=== PATIENT | female | born 1975 | race Caucasian/White ===

== ENCOUNTER 2019-06-01 16:45 | Emergency (ER) | payer BC ==
[2019-06-01 16:52] VITALS: BP 118/76; PULSE 85; RESP 18; TEMP 98
[2019-06-01] MEDS ORDERED: ONDANSETRON ODT 4 MG TAB PO STA (17:14)
[2019-06-01] MEDS ORDERED: traMADol 50 MG STARTER PACK 3 TAB BTL PO STA (17:14)
--- NOTE | 2019-06-01 17:45 | XR ---
EXAMINATION TYPE: XR elbow complete LT DATE OF EXAM: 06/01/2019 COMPARISON: NONE HISTORY: Pain TECHNIQUE: 3 views FINDINGS: Elbow joint spaces are normal. I see no fracture nor dislocation. There is no sign of elbow joint effusion. IMPRESSION: Negative left elbow exam.
--- NOTE | 2019-06-01 17:45 | XR ---
EXAMINATION TYPE: XR lumbar spine 2 or 3V DATE OF EXAM: 06/01/2019 COMPARISON: NONE HISTORY: Pain TECHNIQUE: 3 views FINDINGS: Lumbar vertebra have normal spacing and alignment. Posterior elements are intact. Sacroilia c joints appear normal. IMPRESSION: Normal lumbar spine.
--- NOTE | 2019-06-01 17:46 | XR ---
EXAMINATION TYPE: XR wrist complete LT DATE OF EXAM: 06/01/2019 COMPARISON: NONE HISTORY: Pain TECHNIQUE: 4 views FINDINGS: There is acute transverse fracture distal radial metaphysis. There is separation of the fra gments up to 2 mm. There is minimal impaction. Distal ulna is intact. Carpal bones are intact. IMPRESSION: Acute transverse fracture distal radius.
--- NOTE | 2019-06-01 17:51 | ED ---
Fall HPI - General Source: patient Mode of arrival: ambulatory <Nasreen Mireles - Last Filed: 06/01/19 20:07> <Teresa Huang - Last Filed: 06/04/19 01:32> - General Chief Complaint: Fall Stated Complaint: Wrist injury Time Seen by Provider: 06/01/19 16:50 - History of Present Illness Initial Comments: 43-year-old female presenting status post fall for left wrist pain. Patient states that she slipped on water falling to her bottom and extending her left wrist. Patient states that she had significant left wrist pain near the base of patient states that she has also pain at the elbow and in the "tailbone". Patient denies any injury to the head and neck upper back. Patient denies any difficulty ambulating sensation deficits of the upper or lower extremities. Patient denies any trauma to the abdomen or chest. Patient states she is able to fully range at the shoulders bilaterally is no injury of the right upper extremity. Patient denies any pain in the pelvis or hips knees or ankles. Remaining review of systems negative. Patient is concerned she fractured her left wrist and presents for evaluation emergency department today. (Nasreen Mireles) - Related Data Allergies Allergy/AdvReac Type Severity Reaction Status Date / Time Sulfa (Sulfonamide Allergy Rash/Hives Verified 06/01/19 16:49 Antibiotics) Review of Systems ROS Other: All systems not noted in ROS Statement are negative. <Nasreen Mireles - Last Filed: 06/01/19 20:07> ROS Other: All systems not noted in ROS Statement are negative. <Teresa Huang - Last Filed: 06/04/19 01:32> ROS Statement: Those systems with pertinent positive or pertinent negative responses have been documented in the HPI. Past Medical History Past Medical History: No Reported History History of Any Multi-Drug Resistant Organisms: None Reported Past Surgical History: Orthopedic Surgery Additional Past Surgical History / Comment(s): R elbow, wrist, R hipx 2, bilateral eye Past Psychological History: No Psychological Hx Reported Smoking Status: Never smoker Past Alcohol Use History: Occasional Past Drug Use History: None Reported <Nasreen Mireles - Last Filed: 06/01/19 20:07> General Exam Limitations: no limitations <Nasreen Mireles - Last Filed: 06/01/19 20:07> - General Exam Comments Initial Comments: General: The patient is awake and alert, in no distress, and does not appear acutely ill. Eye: Pupils are equal, round and reactive to light, extra-ocular movements are intact. No nystagmus. There is normal conjunctiva bilaterally. No signs of icterus. Ears, nose, mouth and throat: There are moist mucous membranes and no oral lesions. Neck: The neck is supple, there is no tenderness or JVD. Cardiovascular: There is a regular rate and rhythm. No murmur, rub or gallop is appreciated. Respiratory: Lungs are clear to auscultation, respirations are non-labored, breath sounds are equal. No wheezes, stridor, rales, or rhonchi. Musculoskeletal: Upon inspection of the wrist bilaterally there is scar on the ventral aspect of the right wrist vertical. Patient has soft tissue swelling at the left wrist on the ventral aspect of carpals. Patient has no anatomical snuffbox tenderness. Patient pain increases with supination for pronation of the wrist. Patient has mild tenderness to palpation over the posterior aspect of the left elbow. No bruising abrasions lacerations. Patient is able to make the okay fingers crossed thumbs-up oppose the small digit and thumb extend at the wrist. No evidence of wristdrop. Compartments are soft and compressible. Sensation intact. Proximal distal to injury site. Neurological: A&O x 3. CN II-XII intact grossly, There are no obvious motor or sensory deficits. Coordination appears grossly intact. Speech is normal. Skin: Skin is warm and dry and no rashes or lesions are noted. Psychiatric: Cooperative, appropriate mood & affect, normal judgment. (Nasreen Mireles) Course Vital Signs 06/01/19 16:49 Temperature 98 F Pulse Rate 85 Respiratory 18 Rate Blood Pressure 118/76 O2 Sat by Pulse 99 Oximetry Medical Decision Making <Nasreen Mireles - Last Filed: 06/01/19 20:07> <Teresa Huang - Last Filed: 06/04/19 01:32> - Medical Decision Making 43-year-old female presented for fall. Imaging studies reveal a minimally displaced, slightly impacted transverse distal radius fracture. Patient is neurovascular intact both prior to and after splint placement. Patient has established orthopedic care with a follow-up appointment this week for previous injuries. Patient plain films of the lumbar spine no acute process. At this time I feel patient is stable for discharge with outpatient follow-up. Return parameters were discussed patient agreeable discharged appearing well. Case discussed with Dr. Huang prior to d/c (Nasreen Mireles) I was available for consultation in the emergency department. The history and physical exam were done by the midlevel provider. I was consulted for this patients care. I reviewed the case with the midlevel provider and based on their presentation of the patient, I agree with the assessment, medical decision making and plan of care as documented. Chart was dictated using [employer] dictation software. Attempts were made to correct any dictation errors however some typographical errors may persist. (Teresa Huang) Disposition Is patient prescribed a controlled substance at d/c from ED?: No Time of Disposition: 17:50 <Nasreen Mireles - Last Filed: 06/01/19 20:07> <Teresa Huang - Last Filed: 06/04/19 01:32> Clinical Impression: Fall, Distal radius fracture, right, Elbow pain, Coccyx pain Disposition: HOME SELF-CARE Condition: Good Instructions (If sedation given, give patient instructions): Wrist Fracture in Adults (ED) Additional Instructions: Please use medication as discussed. Please follow-up with orthopedics in the next week. Please return to emergency room if the symptoms increase or worsen or for any other concerns. Referrals: Nonstaff,Physician [Primary Care Provider] - 1-2 days Brayan Tolentino DO [Doctor of Osteopathic Medicine] - 1-2 days
== END 2019-06-01 18:11 | disposition home or self-care (01) ==
LOC: EC 16:45
DX: S52.501A Unspecified fracture of the lower end of right radius, initial encounter for closed fracture (principal); M53.3 Sacrococcygeal disorders, not elsewhere classified; Z88.2 Allergy status to sulfonamides; W01.0XXA Fall on same level from slipping, tripping and stumbling without subsequent striking against object, initial encounter; Y92.009 Unspecified place in unspecified non-institutional (private) residence as the place of occurrence of the external cause
CPT/HCPCS: 29125; 72100; 99283